=== PATIENT | male | born 1990 | race Caucasian/White ===

== ENCOUNTER 2016-11-29 20:16 | Emergency (ER) | payer MEDICAID ==
[2016-11-29 20:28] VITALS: RESP 16; TEMP 98.1
--- NOTE | 2016-11-29 20:30 | EDPHY ---
H & P Time Seen by Provider: 11/29/16 20:16 HPI/ROS: CHIEF COMPLAINT: Alcohol intoxication HISTORY OF PRESENT ILLNESS: Patient is been a heavy drinker for at least the last 10 years and went to detox today after drinking a 750 mL bottle of Lenny Alcaraz. However because he has a history also of benzodiazepine, ingestion they referred him to the emergency department for further evaluation. Here the patient essentially has no complaints. He denies abdominal pain nausea or vomiting. No seizures. Denies recent trauma. REVIEW OF SYSTEMS: Eye: no change in vision ENT: no sore throat Cardiac: no chest pain or syncope Pulmonary: no cough or SOB Abdomen: no vomiting, diarrhea, abdominal pain Musculoskeletal: no back pain Skin: no rash Neuro: no headache, denies head or neck trauma Constitutional: no fever : no urinary symptoms A comprehensive 10 point review of systems is otherwise negative aside from elements mentioned in the history of present illness. PAST MEDICAL HISTORY: Hypertension, reflux, alcoholism. Paramedics initially got a history he was on "blood thinners" but on further questioning the patient has never had DVT or PE Social history: Recent heavy alcohol General Appearance: Alert and conversant, cooperative. Eyes: No scleral icterus. ENT, Mouth: Normal mucous membranes. Respiratory: Normal respiratory effort, breath sounds equal, lungs are clear to auscultation. Cardiovascular: Regular rate and rhythm. Gastrointestinal: Abdomen is soft and non tender. Neurological: Alert and oriented x3. Slow slurred speech. Face symmetric, normal movement and sensation in all extremities. Patient is ambulatory without ataxia or assistance. Skin: Warm and dry, no rashes. Abrasion left forehead 1 cm. Musculoskeletal: No peripheral edema and no joint swelling. No spinal tenderness. Psychiatric: Not agitated. Emergency Department course/MDM: Glucose performed. Patient's clinical presentation would be explained by his self admitted recent alcohol ingestion. 2039: Glucose 98, plan for observation until clinically sober to be discharged by himself or into the care of a responsible adult. Patient's aunt arrived. Discussed with her that the patient can call our block and case maker tomorrow during the day if he wants outpatient detox resources. Smoking Status: Current every day smoker Constitutional: Initial Vital Signs Temperature (C) 36.7 C 11/29/16 20:27 Heart Rate 100 11/29/16 20:27 Respiratory Rate 16 11/29/16 20:27 Blood Pressure 141/104 H 11/29/16 20:27 O2 Sat (%) 96 11/29/16 20:27 O2 Delivery Mode Room Air Allergies/Adverse Reactions: No Known Allergies Allergy (Verified 11/29/16 20:26) Home Medications: Medication Instructions Recorded Atenolol 03/14/16 Omeprazole 03/14/16 Medical Decision Making Differential Diagnosis: Differential for slurred speech considered including but not limited to hypoglycemia, alcohol intoxication, seizure, stroke. - Data Points Laboratory Results: 11/29/16 20:30 POC Hgb 17.0 gm/dL gm/dL (14.5-17.3) POC Hct 50 % % (42.8-50.6) POC Sodium 149 mEq/L H mEq/L (134-144) POC Potassium 4.0 mEq/L mEq/L (3.3-5.0) POC Chloride 107 mEq/L mEq/L (96-108) POC BUN 8 mg/dL mg/dL (7-23) POC Creatinine 1.2 mg/dL mg/dL (0.8-1.5) POC Glucose 98 mg/dL mg/dL (70-100) Point of Care Test Results: 11/29/16 20:30 POC Sodium 149 H POC Potassium 4.0 POC Chloride 107 POC BUN 8 POC Creatinine 1.2 POC Glucose 98 Departure - Departure Disposition: Home, Routine, Self-Care Clinical Impression: Alcoholic intoxication Qualifiers: Complication of substance-induced condition: uncomplicated Qualified Code(s): F10.120 - Alcohol abuse with intoxication, uncomplicated Condition: Good Instructions: Alcohol Intoxication (ED) Referrals: Patient,NotPresent [Unknown] - As per Instructions [facility],. [Clinic] - As per Instructions
[2016-11-29 20:44] VITALS: BP 120/87; PULSE 91; O2SAT 99
== END 2016-11-29 21:27 | disposition home or self-care (01) ==
LOC: EDUNIT#
DX: F10.120 Alcohol abuse with intoxication, uncomplicated (principal); I10 Essential (primary) hypertension; F17.200 Nicotine dependence, unspecified, uncomplicated
CPT/HCPCS: 82947-QW